=== PATIENT | female | born 1995 | race American Indian/Alaskan Native ===

== ENCOUNTER 2016-08-29 14:39 | Outpatient (CLI) | payer MEDICAID ==
[2016-08-29 16:01] VITALS: BP 88/46
[2016-08-29] MEDS ORDERED: LACTATED RINGERS 500 ML IV ONE (16:04)
== END 2016-08-29 17:40 | disposition home or self-care (01) ==
LOC: TRG 14:39
PROVIDERS: ATTEND Obstetrics & Gynecology
DX: O47.03 False labor before 37 completed weeks of gestation, third trimester (principal); Z3A.36 36 weeks gestation of pregnancy
CPT/HCPCS: 59025; J7120

== ENCOUNTER 2016-09-04 01:31 | Outpatient (CLI) | payer MEDICAID ==
[2016-09-04 01:53] VITALS: BP 94/61
[2016-09-04] MEDS ORDERED: VISTARIL PO PRN (02:22)
--- NOTE | 2016-09-04 10:47 | Ultrasound Report ---
ULTRASOUND BIOPHYSICAL PROFILE: History: well being Technique: Transabdominal ultrasound with Doppler interrogation. 2 - breathing movements 2 - movements 2 - posture and tone 2 - Qualitative amniotic fluid volume 8 - TOTAL SCORE OF POSSIBLE 8 Heart Rate (bpm) 143
== END 2016-09-04 02:56 | disposition home or self-care (01) ==
LOC: TRG 01:31
PROVIDERS: ATTEND Obstetrics & Gynecology
DX: O47.1 False labor at or after 37 completed weeks of gestation (principal); Z3A.37 37 weeks gestation of pregnancy
CPT/HCPCS: 76819; Q0177

== ENCOUNTER 2016-09-04 03:15 | Inpatient (IN) | payer MEDICAID ==
[2016-09-04] MEDS ORDERED: LACTATED RINGERS 1,000 ML ONE (03:27)
[2016-09-04] MEDS ORDERED: STADOL ONE (03:38)
[2016-09-04] MEDS ORDERED: BRETHINE IVP PRN (03:54)
[2016-09-04] MEDS ORDERED: ePHEDrine SULFATE IV PRN (03:54)
[2016-09-04] MEDS ORDERED: SUBLIMAZE IV PRN (03:54)
[2016-09-04] MEDS ORDERED: XYLOCAINE 2% INFILTRATI ONE (03:54)
[2016-09-04] MEDS ORDERED: NARCAN 0.4 MG/1 ML IV PRN (03:54)
[2016-09-04] MEDS ORDERED: ZOFRAN IV PRN ×2 (03:54→03:59)
[2016-09-04] MEDS ORDERED: BRETHINE SUB-Q PRN (03:54)
[2016-09-04] MEDS ORDERED: MINERAL OIL PO PRN (03:54)
[2016-09-04] MEDS ORDERED: MILK OF MAGNESIA PO PRN (03:59)
[2016-09-04] MEDS ORDERED: PHENERGAN PR PRN (03:59)
[2016-09-04] MEDS ORDERED: TYLENOL PO PRN (03:59)
[2016-09-04] MEDS ORDERED: DULCOLAX PR PRN (03:59)
[2016-09-04] MEDS ORDERED: TUCKS PAD TP PRN (03:59)
[2016-09-04] MEDS ORDERED: LANSINOH TP PRN (03:59)
[2016-09-04] MEDS ORDERED: BENADRYL PO PRN (03:59)
[2016-09-04] MEDS ORDERED: PHENERGAN PO PRN (03:59)
[2016-09-04] MEDS ORDERED: PITOCin/NS 30 UNIT/500ML 30 UNITS/500 ML BAG IV SCH (04:00)
[2016-09-04] MEDS ORDERED: SODIUM CHLORIDE FLUSH SYRINGE 10 ML IV NR (04:00)
[2016-09-04] MEDS ORDERED: PITOCin/NS 20 UNIT/1000ML DRIP 20 UNITS/1,000 ML BAG IV SCH ×2 (04:00)
[2016-09-04] MEDS ORDERED: LACTATED RINGERS 1,000 ML IV SCH (04:00)
--- NOTE | 2016-09-04 04:08 | History and Physical Report ---
History of Present Illness Date of examination: 09/04/16 Date of admission: 09/04/16 03:18 Chief complaint: Labor History of present illness: Pt is a 20yo BF EDC 09/21/16; EGA 37 4/7 weeks presents to L&D complaining of RUC's q 2-3 mins. She received care at [facility] Past History Past Medical History: no pertinent history Past Surgical History: no surgical history Social history: no significant social history, single - Obstetrical History Expected Date of Delivery: 09/21/16 Actual Gestation: 37 Week(s) 4 Day(s) : 4 Medications and Allergies Allergies Allergy/AdvReac Type Severity Reaction Status Date / Time morphine Allergy Itching Verified 08/29/16 16:04 Active Meds: Active Medications Acetaminophen (Tylenol) 650 mg PO Q4H PRN PRN Reason: Pain MILD(1-3)/Fever >100.5/MOON Bisacodyl (Dulcolax) 10 mg AR BID PRN PRN Reason: Constipation Diphenhydramine HCl (Benadryl) 25 mg PO Q6H PRN PRN Reason: Itching Diphtheria/Tetanus/Acell Pertussis (Boostrix) 0.5 ml IM .ONCE ONE Stop: 09/05/16 04:00 Docusate Sodium (Colace) 100 mg PO BID ALEXA Ephedrine Sulfate (Ephedrine Sulfate) 10 mg IV Q2M PRN PRN Reason: Hypotension Stop: 09/04/16 03:59 Fentanyl (Sublimaze) 100 mcg IV Q2H PRN PRN Reason: Labor Pain Ferrous Sulfate (Feosol) 325 mg PO BID ALEXA Lactated Ringer's (Lactated Ringers) 1,000 mls @ 125 mls/hr IV DIRECT ALEXA Oxytocin/Sodium Chloride (Pitocin/Ns 20 Unit/1000ml Drip) 20 units in 1,000 mls @ 125 mls/hr IV DIRECT ALEXA Oxytocin/Sodium Chloride (Pitocin/Ns 30 Unit/500ml) 30 units in 500 mls @ 1 mls /hr IV TITR ALEXA; 1 MILLIUNITS/MIN PRN Reason: Protocol Oxytocin/Sodium Chloride (Pitocin/Ns 20 Unit/1000ml Drip) 20 units in 1,000 mls @ 250 mls/hr IV DIRECT ALEXA Ibuprofen (Motrin) 600 mg PO Q6H ALEXA Lidocaine (Xylocaine 2%) 20 ml INFILTRATI ONCE ONE Stop: 09/04/16 03:55 Magnesium Hydroxide (Milk Of Magnesia) 30 ml PO HS PRN PRN Reason: Constipation Measles/Mumps/Rubella Vaccine Live (M-M-R Ii Vaccine) 0.5 ml SUB-Q .ONCE ONE Stop: 09/05/16 04:00 Mineral Oil (Mineral Oil) 30 ml PO QHS PRN PRN Reason: Constipation Multi-Ingredient Ointment (Lansinoh) 1 applic TP PRN PRN PRN Reason: Sore Nipples Multivitamins/Iron/Calcium ( Vitamin) 1 each PO QDAY ALEXA Naloxone HCl (Narcan 0.4 Mg/1 Ml) 0.1 mg IV Q2MIN PRN PRN Reason: Res Rate </= 8 or 02 SAT < 92% Ondansetron HCl (Zofran) 4 mg IV Q8H PRN PRN Reason: Nausea And Vomiting Ondansetron HCl (Zofran) 4 mg IV Q8H PRN PRN Reason: Nausea And Vomiting Promethazine HCl (Phenergan) 25 mg AR Q6H PRN PRN Reason: Nausea And Vomiting Promethazine HCl (Phenergan) 25 mg PO Q6H PRN PRN Reason: Nausea And Vomiting Sodium Chloride (Sodium Chloride Flush Syringe 10 Ml) 10 ml IV PRN NR Terbutaline Sulfate (Brethine) 0.25 mg SUB-Q ONCE PRN PRN Reason: Hyperstimulation/Hypertonicity Stop: 09/04/16 03:55 Terbutaline Sulfate (Brethine) 0.25 mg IVP ONCE PRN PRN Reason: Hyperstimulation/Hypertonicity Stop: 09/04/16 03:55 Witch Ayesha/Glycerin (Tucks Pad) 1 each TP PRN PRN PRN Reason: Hemorrhoid/cleansing/soothing Review of Systems All systems: negative - Physical Exam Breasts: Positive: deferred Cardiovascular: Regular rate Lungs: Positive: Clear to auscultation Abdomen: Positive: normal appearance Genitourinary (Female): Positive: normal external genitalia Uterus: Positive: enlarged Extremities: Positive: normal - Obstetrical FHR: category 1 Uterine Contraction Monitor Mode: External Cervical Dilatation: 9 Cervical Effacement Percentage: 100 station: 0 Uterine Contraction Pattern: Regular Uterine Tone Measurement Phase: Contraction Uterine Contraction Intensity: Strong/Firm Results All other labs normal. Assessment and Plan - Patient Problems (1) 37 weeks gestation of Onset Date: 09/04/16 Current Visit: Yes Status: Acute Plan to address problem: A: IUP @ 37 4/7 weeks in labor
--- NOTE | 2016-09-04 04:11 | Procedure Note ---
OB Delivery Note - Delivery Date of Delivery: 09/04/16 Surgeon: MARGRET PIPER Estimated blood loss: 300cc - Vaginal Delivery presentation: vertex Delivery position: OA Intrapartum events: abruption Delivery induction: AROM Delivery augmentation: rupture of membranes Delivery monitor: external FHT, external uterine Route of delivery: Delivery placenta: spontaneous Delivery cord: 3 umbilical vessels Episiotomy: none Delivery laceration: none Anesthesia: none Delivery comments: Infant delivered OA over intact perineum without anesthesia. Infant placed on Mom's chest for [id number] bonding and delayed cord clamping. - Infant A at 1 minute: 9 at 5 minutes: 9 Infant Gender: Male ([id number])
[2016-09-04 04:36] LABS: Hematocrit 31.2 % (30.3-42.9); Hemoglobin 9.9 gm/dl (10.1-14.3); Mean Corpuscular HGB Conc 32 % (30-34); Mean Corpuscular Volume 76 fl (79-97); Platelet Count 174 K/mm3 (140-440); Red Blood Count 4.12 M/mm3 (3.65-5.03); White Blood Count 9.3 K/mm3 (4.5-11.0)
[2016-09-04 04:37] LABS: Mean Corpuscular Hemoglobin 24 pg (28-32)
[2016-09-04] MEDS: MOTRIN PO SCH ×4 (04:42→22:24)
[2016-09-04 06:31] LABS: Urine Drugs of Abuse Note Disclamer
[2016-09-04] MEDS: NORCO 5/325 PO PRN ×2 (07:17→18:54)
[2016-09-04] MEDS: FEOSOL PO SCH ×2 (10:53→22:26)
[2016-09-04] MEDS: COLACE PO SCH ×2 (10:53→22:27)
[2016-09-04] MEDS: PRENATAL VITAMIN PO SCH (10:53)
[2016-09-04 18:46] LABS: Hematocrit 25.3 % (30.3-42.9); Hemoglobin 8.2 gm/dl (10.1-14.3)
[2016-09-05] MEDS: NORCO 5/325 PO PRN ×3 (02:41→23:59)
[2016-09-05] MEDS: MOTRIN PO SCH ×4 (05:41→23:58)
[2016-09-05] MEDS ORDERED: BOOSTRIX IM ONE (06:00)
[2016-09-05] MEDS ORDERED: M-M-R II VACCINE SUB-Q ONE (06:00)
[2016-09-05] MEDS: FEOSOL PO SCH ×2 (09:33→21:29)
[2016-09-05] MEDS: PRENATAL VITAMIN PO SCH (09:33)
[2016-09-05] MEDS: COLACE PO SCH ×2 (09:33→21:30)
--- NOTE | 2016-09-05 10:48 | Progress Note ---
Assessment and Plan A: PPD # 1 -stable P: Discharge home in am Subjective - Subjective Date of service: 09/05/16 Principal diagnosis: Patient reports: appetite normal [place]: doing well Objective - Vital Signs Latest vital signs: Vital Signs Temp Pulse Resp BP 09/05/16 08:20 97.8 F 75 20 95/55 09/05/16 00:25 97.5 F L 66 18 98/53 09/04/16 16:55 98.4 F 108 H 20 93/55 09/04/16 12:25 98.3 F 76 18 86/56 Intake and Output 09/04/16 09/05/16 09/05/16 22:59 06:59 14:59 Intake Total 360 360 120 Balance 360 360 120 Intake: Oral 360 360 120 Other: Total, Intake Amount 120 120 120 # Voids Void 1 1 1 - Exam Breasts: Present: deferred Cardiovascular: Present: Regular rate Abdomen: Present: soft Vulva: both: normal Uterus: Present: fundal height below umbilicus Extremities: Present: normal Deep Tendon Reflex Grade: Normal +2 - Labs Labs: Abnormal lab results 09/04/16 Range/Units 18:23 Hgb 8.2 L (10.1-14.3) gm/dl Hct 25.3 L (30.3-42.9) %
--- NOTE | 2016-09-05 10:50 | Discharge Summary ---
Providers - Providers Date of Admission: 09/04/16 03:18 Date of discharge: 09/05/16 Attending physician: MARGRET LUO MD Primary care physician: MARGRET LUO MD Hospitalization Reason for admission: active labor Delivery: Episiotomy: none Laceration: none Incision: normal Other procedures: none complications: none Discharge diagnosis: IUP at term delivered baby: male Condition at discharge: Good Disposition: DC-01 TO HOME OR SELFCARE Plan - Discharge Medications Prescriptions: ALBUTEROL Inhaler [ProAir HFA Inhaler] 2 puff IH QID PRN #1 inhalation PRN Reason: Shortness Of Breath - Provider Discharge Summary Activity: routine, no sex for 6 weeks Diet: routine Instructions: routine Additional instructions: [] Smoking cessation referral if applicable(refer to patient education folder for contact #) [] Refer to [facility] Booklet Call your doctor immediately for: * Fever > 100.5 * Heavy vaginal bleeding ( >1 pad per hour) * Severe persistent headache * Shortness of breath * Reddened, hot, painful area to leg or breast * Drainage or odor from incision. * Keep incision clean and dry at all times and follow doctor's instructions regarding bathing/showering - Follow up plan Follow up: [facility] [Provider Group] - 6 Weeks
[2016-09-06] MEDS: MOTRIN PO SCH (05:41)
[2016-09-06] MEDS ORDERED: DEPO-PROVERA (CONTRACEPTION) IM ONE (08:00)
[2016-09-06 08:41] VITALS: BP 98/64
[2016-09-06] MEDS: COLACE PO SCH (09:47)
[2016-09-06] MEDS: FEOSOL PO SCH (09:47)
[2016-09-06] MEDS: PRENATAL VITAMIN PO SCH (09:48)
[2016-09-06] MEDS: NORCO 5/325 PO PRN (09:52)
== END 2016-09-06 12:55 | disposition home or self-care (01) | DRG 774 ==
LOC: TRG 03:15 → LD 03:18 → OB 06:28
PROVIDERS: ADMIT Obstetrics & Gynecology; ATTEND Obstetrics & Gynecology
PROC: 10E0XZZ Delivery of Products of Conception, External Approach (ICD-10-PCS; principal; 2016-09-04)
PROC: 10907ZC Drainage of Amniotic Fluid, Therapeutic from Products of Conception, Via Natural or Artificial Opening (ICD-10-PCS; 2016-09-04)
DX: O45.93 Premature separation of placenta, unspecified, third trimester (principal); Z3A.37 37 weeks gestation of pregnancy; Z37.0 Single live birth; Z88.5 Allergy status to narcotic agent
CPT/HCPCS: 36415; 80307; 85014; 85018; 85027; 86706; 86850; 86900; 86901; 99211; G0463; J0595; J1050; J2590; J3010; J7120